=== PATIENT | male | born 1960 | race Caucasian/White ===

== ENCOUNTER 2019-01-04 17:08 | Emergency (ER) | payer BC ==
[2019-01-04 17:15] VITALS: BP 141/76
[2019-01-04] MEDS ORDERED: Tetan/Diph/Pertus SYR(Tdap)* 0.5 ML SYR(BOOSTRIX) use SYR contains LATEX IM ONE (17:23)
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
== END 2019-01-04 18:17 | disposition home or self-care (01) ==
LOC: ED 17:08
DX: S20.212A Contusion of left front wall of thorax, initial encounter (principal); Z23 Encounter for immunization; W11.XXXA Fall on and from ladder, initial encounter; Y92.9 Unspecified place or not applicable; I10 Essential (primary) hypertension; J45.909 Unspecified asthma, uncomplicated; Z79.82 Long term (current) use of aspirin
CPT/HCPCS: 90471; 90715; 99282